=== PATIENT | female | born 1945 | race Caucasian/White ===

== ENCOUNTER → 2024-04-23 15:50 | Outpatient (CLI) | payer OTHER, SELFPAY ==
--- NOTE | 2024-04-23 15:51 | DI.MG.S_ITS ---
BILATERAL DIGITAL SCREENING MAMMOGRAM 3D/2D WITH CAD: 04/23/2024 CLINICAL: Routine screening. Family history of breast cancer. Comparison is made to exams dated: 03/20/2023 mammogram, 10/06/2019 mammogram, and 07/22/2018 mammogram - outside location. There are scattered areas of fibroglandular density (category b / 25%-50% glandular tissue). Current study was also evaluated with a Computer Aided Detection (CAD) system. No significant masses, calcifications, or other findings are seen in either breast. There has been no significant interval change. IMPRESSION: NEGATIVE There is no mammographic evidence of malignancy. A 1 year screening mammogram is recommended. Based on the Tyrer Cuzick model (a risk assessment model) the patient's lifetime risk is 10.4% and her 10 year risk is 0.0%. According to the ACR, ACS, and NCCN guidelines, an annual breast MRI exam along with mammogram is recommended if the patient's lifetime risk is 20% or greater. This exam was interpreted at Station ID: [id number]. NOTE: For mammograms, a report in lay terms will be sent to the patient. Approximately 15% of breast malignancies will not be visualized mammographically. In the management of a palpable breast mass, a negative mammogram must not discourage biopsy of a clinically suspicious lesion. Electronically Signed By: David olivier/mikki:04/25/2024 09:55:25 letter sent: Normal Exam ACR BI-RADS Category 1: Negative
== END ==
LOC: MAMMO 15:51
PROVIDERS: PCP Family Medicine; Referring Provider Family Medicine; Visit Provider Family Medicine
DX: Z12.31 Encounter for screening mammogram for malignant neoplasm of breast (principal); Z80.3 Family history of malignant neoplasm of breast
CPT/HCPCS: 77063; 77067

== ENCOUNTER → 2024-12-04 15:33 | Outpatient (CLI) | payer OTHER, SELFPAY ==
--- NOTE | 2024-12-04 15:35 | DI.RAD.S_ITS ---
PROCEDURE: XR KNEE RT 3V INDICATIONS: chronic joint pain TECHNIQUE: 3 views of the knee were acquired. COMPARISON: None. FINDINGS: Bones: There are no osseous abnormalities. 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 Small effusion noted. Slight lateral patellar subluxation from the trochlear groove on the sunrise view.. Soft tissues: Normal IMPRESSION: Severe degeneration. Dictated by: Marshall Eller M.D. on 12/05/2024 at 9:52 Approved by: Marshall Eller M.D. on 12/05/2024 at 9:52
--- NOTE | 2024-12-04 15:35 | DI.RAD.S_ITS ---
PROCEDURE: XR HIP W PEL IF DONE BILAT 2V INDICATIONS: chronic joint pain TECHNIQUE: Three views of the hips were acquired. COMPARISON: None. FINDINGS: Bones: There are no osseous abnormalities. SI and hip joints: Mild bilateral SI and hip degeneration noted. Moderate L4-5 L5-S1 degenerative disc and facet disease. Soft tissues: No soft tissue swelling, calcification or mass. IMPRESSION: Degeneration Dictated by: Marshall Eller M.D. on 12/05/2024 at 9:51 Approved by: Marshall Eller M.D. on 12/05/2024 at 9:52
[2024-12-04 15:50] LABS: Add Manual Diff / Slide Review NO; Hematocrit 42.5 % (36-46); Hemoglobin 14.3 g/dL (12.0-16.0); Lymphocytes Absolute Auto 2300 /uL (1100-4500); Mean Corpuscular HGB Conc 33.6 % (30-36); Mean Corpuscular Hemoglobin 31.4 PG (26-34); Mean Corpuscular Volume 93.6 fL (80-100); Platelet Count 193 X10^3/uL (150-400)
[2024-12-04 16:10] LABS: Alanine Aminotransferase 22 IU/L (<35); Albumin 4.2 g/dL (3.5-5.0); Albumin Globulin Ratio 1.8 (1.0-2.8); Alkaline Phosphatase 69 U/L (38-126); Blood Urea Nitrogen 11 mg/dL (7-17); Calcium 9.1 mg/dL (8.4-10.2); Carbon Dioxide 28 mmol/L (22-32); Chloride 105 mmol/L (98-107); Cholesterol 167 mg/dL (140-199); Estimated Glomerular Filt Rate > 60 mL/min (>60); Globulin 2.3 g/dL (1.7-4.1); Glucose 87 mg/dL (70-99); HDL Cholesterol 68 mg/dL (40-60); HEMOLYSIS 21 (0-50); Potassium 4.5 mmol/L (3.4-5.1); Sodium 137 mmol/L (137-145); Total Protein 6.5 g/dL (6.3-8.2); Triglycerides 134 mg/dL (35-150)
== END ==
PROVIDERS: PCP Family Medicine; Referring Provider Family Medicine; Visit Provider Family Medicine
DX: Z00.00 Encounter for general adult medical examination without abnormal findings (principal); M25.551 Pain in right hip; E78.00 Pure hypercholesterolemia, unspecified; G89.29 Other chronic pain; M25.561 Pain in right knee; Z87.39 Personal history of other diseases of the musculoskeletal system and connective tissue; Z79.899 Other long term (current) drug therapy; M16.0 Bilateral primary osteoarthritis of hip
CPT/HCPCS: 36415; 73521; 73562; 80053; 80061; 85025

== ENCOUNTER 2025-02-26 08:38 | Day surgery (SDC) | payer OTHER, SELFPAY ==
--- NOTE | 2025-02-26 06:25 | PM.HP.IH.1 ---
History of Present Illness History of Present Illness Date Patient Seen: 02/26/25 Time Patient Seen: 06:25 Chief complaint: Screening Colonoscopy Narrative: Patient presents for screening colonoscopy this morning. Meds Home Medications and Allergies Home Medications ?Medication ?Instructions ?Recorded ?Confirmed ?Type simvastatin 20 mg tablet 20 mg PO BEDTIME #90 tabs 06/19/24 12/18/24 Rx valacyclovir 500 mg tablet 500 mg PO DAILY #90 tabs 06/19/24 12/18/24 Rx trazodone 50 mg tablet 100 - 150 mg (2 - 3 x 50 mg) PO 06/23/24 12/18/24 Rx BEDTIME #90 tabs peg 3350-electrolytes 236 240 ml PO Q10M #4,000 mL 01/19/25 Rx gram-22.74 gram-6.74 gram-5.86 gram solution (Golytely) Allergies Allergy/AdvReac Type Severity Reaction Status Date / Time No Known Drug Allergies Allergy Verified 12/18/24 09:03 Exam Narrative Exam Narrative: Const General: healthy appearing, comfortable and no acute distress Orientation: alert and oriented x3 HENMT Ears: hearing grossly normal bilaterally Eyes Visual Lopez: normal visual lopez by confrontation Conjunctivae: conjunctivae normal Sclera: sclerae normal EOM: EOM intact bilaterally Resp Effort & Inspection: normal respiratory effort and able to speak in complete sentences Cardio Rate: regular rate GI Palpation: soft (NT) Extrem General: no pedal edema and no calf tenderness Assessment & Plan Assessment and plan (1) Encounter for screening colonoscopy: Status: Acute Plan Plan screening colonoscopy, possible biopsy. The risks, benefits and options regarding the procedure were explained to the patient in detail. Risk discussion included but not limited to: bleeding, perforation, missed lesion, unable to reach cecum. The patient was encouraged to ask questions and they were answered to their satisfaction. The patient understands and is agreeable to proceed. Time-Based Coding :: [TOTAL MINUTES] spent with patient and on the chart (including review of chart, obtaining history, exam, reviewing outside data, placing orders, documenting exam and treatment plan, and counseling patient) on [DATE]. PROFEE Licensed Loan Officer Assistant Document charge(s): Yes Charge Codes Inpatient/observation care including admit and discharge same day: [id number]
[2025-02-26 09:03] VITALS: BP 129/80; PULSE 55; RESP 16; TEMP 36.2; O2SAT 98
[2025-02-26] MEDS: LACTATED RINGERS 1,000 ML 42 ML IV (09:09)
--- NOTE | 2025-02-26 09:51 | PM.OP.COLON ---
Operative Date/Time/Diagnoses Date of procedure: 02/26/25 Time of procedure: 10:17 Pre-op diagnosis: Screening colonoscopy Post-op diagnosis: same Procedure & Clinicians Study performed: Colonoscopy Same procedure(s) as scheduled: Yes Indications: Screening colonoscopy Surgeon: Roldan Bah Anesthesia Type: MAC +/- Procedure Notes SCOAP/Timeout: Performed Procedure in detail: Colonoscopy Patient placed in left lateral recumbent position. Time out was performed. Procedural sedation was administered by anesthesia. Examination began with a thorough inspection of the perianal area. There was no evidence of fissures, fistulae, external hemorrhoids or cutaneous malignancy. The colonoscope was then placed into the rectum and the lumen was insufflated with carbon dioxide. The scope was carefully advanced forward. Ultimately the cecum was intubated and confirmed by identification of the ileocecal valve, the appendiceal orifice and the confluence of the taenia. The scope was then slowly withdrawn examining the colon thoroughly in all directions. In the rectum, retroflexion of the scope was performed for inspection of the distal rectum and anal canal. ?Significant colonoscopy findings: ?1. Quality of the preparation-good, [place] 2-3, improved with irrigation/suction ?2. Normal screening colonoscopy, no polyps, masses, strictures Scope withdrawal time: 8 minutes Specimen(s): none sent Estimated Blood Loss: 5 Complications: none Impression: Normal screening colonoscopy today Post-procedure Recommendations: Colonoscopy in 10 years Plan for aftercare: PACU then home Follow up: as needed Disposition: PACU
[2025-02-26 10:14] VITALS: BP 95/51; PULSE 59; RESP 20; TEMP 36.2; O2SAT 95
[2025-02-26 10:20] VITALS: BP 92/53; PULSE 64; RESP 22; O2SAT 95
[2025-02-26 10:26] VITALS: BP 100/64; PULSE 75; RESP 18; TEMP 36.8; O2SAT 97
[2025-02-26 10:29] VITALS: BP 106/69; PULSE 57; RESP 22; TEMP 36.8; O2SAT 96
== END 2025-02-26 11:00 | disposition home or self-care (01) ==
PROVIDERS: PCP Family Medicine; Referring Provider Family Medicine; Visit Provider Surgery
PROC: 0DJD8ZZ Inspection of Lower Intestinal Tract, Via Natural or Artificial Opening Endoscopic (ICD-10-PCS; CPT 45378; principal; 2025-02-26 09:45)
DX: Z12.11 Encounter for screening for malignant neoplasm of colon (principal)
CPT/HCPCS: G0121; J2704; J7120